=== PATIENT | male | born 1935 | race Caucasian/White ===

== ENCOUNTER → 2021-03-05 | Outpatient (CLI) | payer MEDICARE ==
[~2021-03-05] MED LIST: ACYC800T88 PO; ASPI81TA50 PO; ATEN25TA PO; ATOR10TA60 PO; AZEL50GE2 TP; ESOM40CA PO; FLUO15CR TP; FLUT1DIS3 IH; LORA0.5T PO; LUTE20TA PO; MELO7.5T29 PO; MULT-245 PO; OMEG1CAP6 PO; ROPI0.5T PO; TAMS0.4C97 PO
--- NOTE | 2021-03-05 14:25 | KCIC ---
Examination: Left Lower Extremity Venous Doppler Ultrasound History: Left leg swelling Comparison: None Procedure: Qureshi scale, color flow 2D and spectal waveform analysis images are obtained with and witho ut compression in the area of the common femoral vein, superficial femoral vein - femoral vein juncti on, main femoral vein (superficial femoral vein) and popliteal vein. Veins of the proximal calf are a lso imaged. Findings: There is normal duplex flow, color flow and compressibility of all visualized vein segments. No evide nce of deep venous thrombus is present. Impression: No evidence of DVT in the left lower extremity venous system. Electronically signed by: Mekhi Alonso MD (03/05/2021 2:23 PM) [id number]
--- NOTE | 2021-03-05 14:45 | KCIC ---
EXAM: Carotid Doppler sonogram. HISTORY: Carotid stenosis. Atherosclerosis. TECHNIQUE: Qureshi scale and color Doppler sonographic evaluation of the neck with spectral waveform negrito lysis was performed and static images are submitted for review. FINDINGS: There is moderate atherosclerotic plaque involving the common carotid arteries, carotid bul bs and internal and external carotid arteries. The peak systolic velocity within the right common carotid artery is 102 cm/sec. The peak systolic ve locity within the right internal carotid artery is 80 cm/sec and the end diastolic velocity within th e right internal carotid artery is 26 cm/sec. The right ICA/CCA ratio is 0.88. The peak systolic velocity within the left common carotid artery is 116 cm/sec. The peak systolic ashley ocity within the left internal carotid artery is 76 cm/sec and the end diastolic velocity within the left internal carotid artery is 30 cm/sec. The left ICA/CCA ratio is 0.65. There is normal antegrade flow within both vertebral arteries. IMPRESSION: 1. Moderate atherosclerotic plaque involving the carotid arteries. 2. Doppler findings consistent with less than 50 being stenosis involving the internal carotid arteri es. PQRS Compliance Statement - Stenosis calculations for CT, MR and conventional angiography are based u eduin measurement of the distal ICA diameter in accordance with the NASCET methodology. Stenosis calcu lations for carotid ultrasound studies are derived from validated velocity criteria which are known t o correlate with the NASCET methodology. Electronically signed by: Conchis Beard MD (03/05/2021 2:43 PM) [id number]
== END ==
LOC: KCIC US 13:01
PROVIDERS: ATTEND Registered Nurse Medical-Surgical
DX: I65.23 Occlusion and stenosis of bilateral carotid arteries (principal); M79.89 Other specified soft tissue disorders
CPT/HCPCS: 93880; 93971